=== PATIENT | male | born 1950 | race Caucasian/White ===

== ENCOUNTER 2024-02-10 13:12 | Outpatient (CLI) | payer OTHER, SELFPAY ==
--- NOTE | ~2024-02-10 | DEXA_ITS ---
Bone Density Report Name: JESSICA RANDLE SR Age: 73 Sex: Male Ethnicity: White Date of : 1950 Indication: screening for osteoporosis; Referring Provider: UNKNOWN, UNKNOWN Study: Bone densitometry was performed. Exam Date: February 10, 2024 Accession number: [id number] Bone Density: Region BMD T-score Z-score Classification AP Spine(L1-L4) 0.883 -1.9 -0.9 Osteopenia Femoral Neck (Left) 0.709 -1.6 -0.3 Osteopenia Total Hip (Left) 0.957 -0.5 0.3 Normal Femoral Neck (Right) 0.724 -1.5 -0.2 Osteopenia Total Hip (Right) 0.965 -0.4 0.3 Normal Total Hip Mean 0.961 -0.5 0.3 Normal World Health Organization criteria for BMD impression classify patients as: Normal (T-score at or above -1.0), Osteopenia (T-score between -1.0 and -2.5), or Osteoporosis (T-score at or below -2.5). 10-year Fracture Risk(1): Major Osteoporotic Fracture 6.8% Hip Fracture 1.8% Reported Risk Factors: [place] (), Neck BMD=0.709, BMI=27.1 (1) FRAX(R) Version 3.08. Fracture probability calculated for an untreated patient. Fracture probability may be lower if the patient has received treatment. Clinical Information Provided by Patient: Patient maximum height was 71 No regular weight bearing exercise Impression: The patient has low bone mass, based on the Total Spine T-score. The patient has an estimated ten-year risk of hip fracture of 1.8% and an estimated ten-year risk of major fracture of 6.8%, based on the WHO FRAX algorithm. Discussion: BONE DENSITY IS LOW AT ONE OR MORE SKELETAL SITES. This patient's lowest T-score is low at one or more skeletal sites. It meets the World Health Organization's (WHO) criteria for ?low bone mass? (T-score between -1.0 and -2.5). The patient's 10-year risk of fracture as calculated by FRAX is less than the threshold where pharmacological therapy is recommended by the National Osteoporosis Foundation (NOF). However, all treatment decisions require clinical judgment and consideration of individual patient factors, including patient preferences, comorbidities, previous drug use, risk factors not captured in the FRAX model (e.g., frailty, falls, vitamin D deficiency, increased bone turnover, interval significant decline in bone density) and possible under or overestimation of fracture risk by FRAX. The patient should follow a healthful lifestyle (good nutrition with adequate calcium and vitamin D, and appropriate weight-bearing exercise). Follow-Up: Consider repeating this study in 2 to 3 years to reassess this patient's status, or sooner if there is some new clinical indication. Reported by: MADDIE on 02/10/2024 1:38:00 PM. Reviewed, dictated and finalized at location [facility] [place]
== END 2024-02-10 13:13 | disposition home or self-care (01) ==
LOC: ANHIMG 13:15
DX: M85.89 Other specified disorders of bone density and structure, multiple sites (principal)
CPT/HCPCS: 77080

== ENCOUNTER 2024-11-12 01:14 | Day surgery (SDC) | payer OTHER, SELFPAY ==
--- NOTE | 2024-11-04 09:46 | PC.NURSE ---
Report to the Outpatient Waiting Room, entrance under the green pavilion located off [facility], at time __10:00AM on date ___11/12/24____. Planned Procedure Time: __12:00PM .? Time changes happen often and if your time is changed the preop area will call you the afternoon before. - You and your visitor will be asked to self-screen and do not enter if you have any COVID symptoms. Please call surgeon if you need to reschedule. - A mask is optional within the hospital at this time. Patients may have clear liquids (water, carbonated beverages, clear teas, apple juice) until 3 hours prior to surgery (9:00AM) with a maximum of 20 ounces. - No food from midnight until time of surgery and no smoking, or chewing tobacco (or any form of nicotine). No chewing gum, candy or mints. Take only the following medications with a SIP of water on the morning of surgery: NONE DO NOT STOP ANY OF YOUR OTHER PRESCRIPTION MEDICATIONS PRIOR TO SURGERY EXCEPT THE FOLLOWING Hold all vitamins and supplements for 3 days per anesthesiologist. Date to take last dose 11/08/24 Please no make-up, nail fijian, hairspray, perfume, deodorant, or body powder the day of surgery.? No jewelry (including any body piercings) or valuables the day of surgery, leave them at home.? Please take a shower or bath the night before, or the morning of, surgery with an antibacterial soap.? Wear comfortable, loose fitting clothing.? - Jewelry must be removed prior to entering the operating room.? Rings and piercings that are not removed may be cut off. - The hospital will not accept responsibility for valuables.? - Please leave all valuables, including medications, at home the day of surgery. If you are going home after surgery, a licensed ambulance driver must drive you home.? - NO public transportation without another adult if you receive anesthesia. - We recommend that an adult stay with you for 24 hours following discharge. - We also recommend that you do not drive, make important decision, drink alcoholic beverages, or take any drugs that were not prescribed by your health care provider for at least 24 hours after your discharge time. Follow any additional instructions given to you from your surgeon. Telephone/FAX instructions given to ____PRISON REP and asked if any additional questions and then verbalized understanding. Patient advised to call surgeon office or pre surgery nurse liaison [phone] if any additional questions.
[2024-11-04 10:09] VITALS: BMI 25.4
[2024-11-12] VITALS (12 sets, daily range): BP systolic 111–144; BP diastolic 60–89; PULSE 60–84; RESP 12–19; TEMP 36.1–36.2; O2SAT 98–100; BMI 26.5
--- OUTSIDE RECORDS SUMMARY | 2024-11-12 01:17 | XMS_ITS | Clinical Summary ---
Author Organization [facility] Address [address] [place] [address] Care Team Providers Care Account Manager [employer] Name Role Phone None, Provider MD Primary Care Provider Unavaila ble Medications atorvastatin (LIPITOR) 20 MG tablet Take 1 tablet (20 mg total) by mouth nightly at bedtime. Active Active Problems Problem Noted Date Diagnosed Date Screening for colon cancer 06/05/2023 Overview (06/05/2023): Added automatically from request for surgery [id number] Family history of colon cancer 06/05/2023 Overview (06/05/2023): Added automatically from request for surgery [id number] Anemia 06/05/2023 Overview (06/05/2023): Added automatically from request for surgery [id number] Social History Tobacco Use Types Packs/Day Years Used Date Smoking Tobacco: Never Smokeless Tobacco: Never Tobacco Cessation:Counseling Given: Not Answered Alcohol Use Standard Drinks/Week Comments Not Currently 0 (1 standard drink = 0.6 oz pur e alcohol) Sex and Gender Information Value Date Recorded Sex Assigned at Not on file Legal Sex Male 12:09 AM LIME PULLER Gender Identity Not on file Sexual Orientation Not on file Last Filed Vital Signs Vital Sign Reading Time Taken Comments Blood Pressure 140/83 10/02/2023 10:15 AM LIME PULLER Pulse 62 10/02/2023 7:48 AM LIME PULLER Temperature 36.7 C (98.1 F) 10/02/2023 7:48 AM LIME PULLER Respiratory Rate 16 10/02/2023 7:48 AM LIME PULLER Oxygen Saturation 99% 10/02/2023 10:15 AM LIME PULLER Inhaled Oxygen Concentration - - Weight 90.7 kg (200 lb) 10/02/2023 7:48 AM LIME PULLER Height 180.3 cm (5' 11 ) 10/02/2023 7:48 AM LIME PULLER Body Mass Index 27.89 10/02/2023 7:48 AM LIME PULLER Plan of Treatment Health Maintenance Due Date Last Done Comments PHQ-2 (Physician [place]) 1962 Hepatitis C 1968 DTaP, Tdap and Td Vaccines ( 1 - Tdap) 1969 Zoster Vaccines (1 of 2) 2000 Pneumococcal Vaccine: 65+ Ye ars (1 of 1 - PCV) 12/05/2015 COVID-19 Vaccine (1 - 2023-2 5 season) 2024 Influenza Adult (#1) 2024 PHQ-2 (Physician [place]) 08/26/2024 RSV Immunization or 60+ Years (1 - 1-dose 75+ series) 2025 Colorectal Cancer Screening Colonoscopy (10 Years) 10/02/2033 10/02/2023 Meningococcal B Vaccine Aged Out No l onger eligible based on patient's age to complete this topic Meningococcal Vaccine Aged Out No abraham savanna eligible based on patient's age to complete this topic RSV Immunizations Under 20 Months Aged Out No longer eligible based on patient's age to complete this topic Insurance [employer] [address] [place] [address] Care Teams Account Manager [employer] Relationship Specialty Start Date End Date None, Provider, MD PCP - General UNKNOWN PHYSICIAN SPECIALTY 10/01/23
[2024-11-12] MEDS: KETOROLAC 15 MG/ML VIAL (*BKC) IV PUSH (10:30)
[2024-11-12] MEDS: ACETAMINOPHEN 500 MG TABLET 1000 MG PO (10:30)
[2024-11-12] MEDS: LACTATED RINGERS 1,000 ML 30 ML IV CONT ×2 (10:35→13:48)
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
--- NOTE | 2024-11-12 11:57 | P.PNAN_ITS ---
Anes - Initial Pre Proc Eval Procedure: Operation Date: 11/12/24 12:00 Proposed Procedures p Robotic Assisted Laparoscopic Left Inguinal Hernia Repair with Mesh - Camille Burton MD Date/Time: 11/12/24 11:57 Surgeon: Camille Burton MD Pre Op Diagnosis: left inguinal hernia Patient Data Age: 73 Gender: M Height: 1.8 m Weight: 86.4 kg Last Vital Signs Temp 36.2 C L 11/12/24 10:38 Pulse 69 11/12/24 10:38 Resp 16 11/12/24 10:38 BP 144/89 H 11/12/24 10:38 Pulse Ox 99 11/12/24 10:38 O2 Del Method Room Air 11/12/24 10:38 Allergies Allergy/AdvReac Type Severity Reaction Status Date / Time No Known Allergies Allergy Verified 11/12/24 10:46 Home Medications ?Medication ?Instructions ?Recorded ?Confirmed ?Type atorvastatin 20 mg tablet (Lipitor) 20 mg PO DAILY 11/04/24 11/12/24 History cholecalciferol (vitamin D3) 1,250 1,250 mcg PO WEEKLY 11/04/24 11/04/24 History mcg (50,000 unit) capsule cyanocobalamin (vitamin B-12) 100 mcg subcut [id number] 11/04/24 11/04/24 History 1,000 mcg/mL injection kit Laboratory Tests 11/12/24 10:17 Blood Type O Positive Antibody Screen Negative Patient hx anesthesia problems: none Family hx anesthesia problems: none Results Review: All pre-operative results and documents have been reviewed as part of the pre- operative evaluation. [facility] Family History Family History Father Alcoholism Social History Social History Smoking status: Unknown if ever smoked Alcohol intake: unknown Substance use: unknown Living arrangements: incarcerated Anes - Eval Final PreProcedure Day of Procedure 11/12/24 11:57 Patient weight: overweight Heart: regular rate and rhythm Lungs: clear to auscultation Airway: Mallampati scale class II Neurological: alert and oriented Last oral intake: >/= 8 hours ASA classification: II Emergent: no Anesthetic plan: proceed Anesthesia type and monitoring: general ETT and standard monitoring Results Review: All pre-operative results and documents have been reviewed as part of the pre- operative evaluation. Informed Consent: The patient's anesthetic plan and its attendant risks and benefits were discussed with the patient/family/POA. Questions were solicited and answers provided to the satisfaction of the patient/family/POA.
--- NOTE | 2024-11-12 11:58 | WPDHPUPDATE1 ---
History and Physical Update Update Date/Time: 11/12/24 11:58 History and Physical has been reviewed, including an updated exam of the patient. There are NO changes in the patient's condition. Risks, benefits, and alternatives have been discussed and questions answered. Patient agrees to proceed with procedure.
[2024-11-12] MEDS: ceFAZolin 2 GM/D5W 50 ML 2 GM/50 ML BAG IVPB (12:00)
[2024-11-12] MEDS: BUPIVACAINE/EPINEPHRINE 0.5% 50 ML VIAL 30 ML INFILTRATE (12:28)
--- NOTE | 2024-11-12 13:43 | P.OP_ITS ---
Procedure Note - Detailed Date of Procedure 11/12/24 Pre-op Diagnosis Incarcerated left inguinal hernia Post-op Diagnosis Same Procedure Performed robotic assisted repair incarcerated left inguinal hernia with mesh, extensive lysis of adhesions Surgeon Camille Burton MD Anesthesia General Indications 73-year-old male presenting with a large incarcerated left Findings large incarcerated direct inguinal hernia with noted incarcerated sigmoid colon, extensive lysis of adhesions from previous exploratory laparotomy Description of Procedure Patient was brought into the operating room and placed in the supine position. After adequate induction of general anesthesia, the patient was prepped and draped in normal sterile fashion. A time-out was then done to verify the patient's identity, as well as the procedure being performed. I began by making a 8 mm incision in the left mid abdomen. A Veress needle was then placed into the peritoneal cavity. CO2 gas was then insufflated and after adequate pneumop eritoneum was achieved, the Veress needle was removed. I then placed an 8 mm trocar through this incision. I then placed the endoscope through this trocar site. There was noted to be extensive adhesions throughout the entirety of the abdomen. Given the extensiveness of the adhesions, I was unable to place any additional ports under direct visualization. I then placed a 5 mm left lower quadrant port to facilitate lysis of adhesions. Once this was placed, using careful dissection with laparoscopic Metzenbaum scissors and cautery, I took the midline as well as right mid abdominal adhesions. There was noted to be small bowel adhesed to the anterior abdominal wall. This was all taken down under direct visualization. Once this area was cleared, I placed a 8 mm port in the supraumbilical region and an 8 mm port in the right mid abdomen. The robot was then docked to the 3 trocar sites. I then scrubbed out and went to the robotic console. Further lysis of adhesions was then done to allow visualization of the left inguinal hernia. Total time of lysis of adhesions both robotically and laparoscopically was approximately 45 minutes. Upon examining the pelvis, it was noted that the patient had a large incarcerated left inguinal hernia. The right side was examined and no hernia defect was noted. There was a significant amount of sigmoid colon incarcerated within this left inguinal hernia. Using gentle traction with the robotic instruments I was able to slowly reduce this sigmoid colon. The colon was noted to be healthy and viable. There was no suggestion of obstruction. I began by making a preperitoneal flap approximately 6 cm superior to the defect. This flap was carried medially past the umbilical ligaments and laterally to the transversalis. It then began dissection of my medial compartment taking this down to the pubic tubercle. A large direct hernia defect was noted. This was reduced and placed back into the preperitoneal space. I then began the lateral dissection taking this down to the transversalis fascia. Once these compartments were achieved, I began dissection around the cord structures. A small sized indirect hernia was noted at this point. Using careful dissection, was able to reduce indirect hernia sac off the cord structures. Once this was adequately done, I went ahead and placed a large piece of 3D Max mesh into the abdominal cavity. The mesh was carefully positioned, centering the center of the mesh over the direct defect. Once this was done, was very satisfied with our repair. Using 3-0 Vicryl sutures, I tacked the mesh medially to Konrad's ligament. Two lateral sutures were placed from the mesh to the transversalis fascia. I then closed the peritoneal flap with a running 2.0 V Lock suture. The abdomen was then desufflated, and all ports were removed. All incisions were then closed with the 4.0 monocryl suture. Dermabond was placed on each wound. The patient tolerated the procedure well, was extubated in the operating room postoperatively, and will now be transferred to the recovery room in stable condition. Implants large 3DMax mesh Estimated Blood Loss 25 Drains No Packing No Pathology None sent Complications No immediate complications Condition Stable Disposition PACU [facility] Billing Surgery - Charge Forward: Surgery Billing
--- NOTE | 2024-11-12 16:37 | SUR.PHASEII ---
1631: RN called security to escort patient outside.
== END 2024-11-12 16:39 | disposition home or self-care (01) ==
PROVIDERS: Visit Provider Surgery
PROC: 8E0Y4CZ Robotic Assisted Procedure of Lower Extremity, Percutaneous Endoscopic Approach (ICD-10-PCS; CPT 49650; principal; 2024-11-12 12:00)
DX: K40.30 Unilateral inguinal hernia, with obstruction, without gangrene, not specified as recurrent (principal); K66.0 Peritoneal adhesions (postprocedural) (postinfection)
CPT/HCPCS: 49507; S2900; 36415; 86850; 86900; 86901; A9270; C1781; J0330; J0690; J1100; J1171; J1885; J2003; J2405; J2704; J3010; J7120